=== PATIENT | male | born 1970 | race Caucasian/White ===

== ENCOUNTER 2024-11-19 14:10 | Emergency (ER) | payer MEDICAID, SELFPAY ==
[2024-11-19 14:10] VITALS: BP 135/83; PULSE 121; RESP 22; TEMP 36.4; O2SAT 100; BMI 26.0
[2024-11-19 14:43] LABS: Absolute Lymphocyte Count 2.19 X10^3/uL (0.83-4.51); Absolute Neutrophil Count 7.7 X10^3/uL (2.0-7.7); Basophil# 0.06 X10^3/uL; Basophil% 0.6 % (0-1); Eosinophil# 0.03 X10^3/uL; Eosinophils% 0.3 % (0-5); Hemoglobin 16.7 g/dL (13.0-16.5); Lymphocyte # 2.19 X10^3/ul (0.83-4.51); Lymphocyte % 20.8 % (19-41); Mean Corp Hgb Conc 32.7 g/dL (32-36); Mean Corpuscular Hgb 29.3 pg (27.0-32.0); Mean Corpuscular Volume 89.6 fL (80-94); Mean Platelet Vol. 10.2 fl (6.2-12.0); Monocyte# 0.51 X10^3/uL; Monocyte% 4.8 % (0-10); NRBC Flagged by Analyzer 0 % (0-5); Neutrophil % 73.1 % (47-70); Platelet Count 194 K/mm3 (150-450); RBC Distribution Width CV 14.3 % (11.6-14.6); Red Blood Count 5.69 M/mm3 (4.6-6.2); White Blood Count 10.5 K/mm3 (4.4-11.0)
[2024-11-19 14:58] LABS: ALB/GLOB Ratio 0.8 RATIO (0.9-2.4); AST(SGOT) 70 U/L (15-37); Alanine Aminotransfer ALT/SGPT 66 U/L (16-61); Albumin, Serum 3.4 g/dL (3.2-5.0); Alkaline Phosphatase 145 U/L (45-117); Anion Gap 8 (5-15); BUN 17 mg/dL (7-18); BUN/Creat Ratio 13.4 RATIO (10-20); Calcium,Total 9.4 mg/dL (8.5-10.1); Chloride 104 mmol/L (98-107); Creatinine, Serum 1.27 mg/dL (0.70-1.30); EST Glomerular Filtration Rate 62 mL/min (>60); Est Glom Filt Rate - Afr Amer 75 mL/min (>60); Globulin 4.2 g/dL (2.2-4.2); Glucose 160 mg/dL (74-106); Potassium 4.7 mmol/L (3.5-5.1); Protein, Total 7.6 g/dL (6.4-8.2); Sodium Level 138 mmol/L (136-145)
--- NOTE | 2024-11-19 15:37 | CT_ITS ---
PROCEDURE: ABDOMEN/PELVIS W IV CONT ONLY REASON FOR EXAM: Abdominal pain, nausea and vomiting TECHNIQUE: Abdomen and pelvis CT with intravenous contrast. Multiplanar reconstructions were performed. COMPARISON: None. FINDINGS: Lower chest: Unremarkable. Liver: Nodular hepatic contour consistent with cirrhosis. There is a cyst at dome of the liver. Biliary/gallbladder: The gallbladder is distended with a gallstone noted. Pancreas: Unremarkable. Spleen: The spleen is enlarged measuring 16.3 cm. Adrenal glands: Unremarkable. Kidneys: Moderate left hydronephrosis with an obstructing calculus at the distal ureter measuring 7.7 mm. A smear punctate nonobstructing renal calculi are present bilaterally. There also multiple cystic regions in the kidneys, most of which are too small characterize. Gastrointestinal/peritoneum: No acute abnormality.Mild colonic diverticulosis present.The appendix is unremarkable.No free air or free fluid. Vascular: Mild ectasia of the distal aorta measuring 0.5 cm. There are mild scattered atherosclerotic calcifications. Lymph nodes: No enlarged lymph nodes by CT size criteria. Pelvic organs: Unremarkable. Bladder: Unremarkable. Bones: Moderate degenerative disc disease is present at L5-S1. Otherwise mild multilevel degenerative changes Soft tissues: Unremarkable. CT/Abdomen/Pelvis W IV Cont ONLY IMPRESSION: 1. Moderate left obstructive uropathy with a 7.7 mm calculus at the distal uret er. 2. Distension of the gallbladder with a gallstone present. If there is concern for acute cholecystitis, sonographic evaluation gallbladder is recommended. 3. Cirrhotic morphology of the liver with splenomegaly. 4. Mild colonic diverticulosis. Reading Location: [facility]
--- NOTE | 2024-11-19 15:38 | ED.VIS.GI ---
HPI HPI - GI History of Present Illness Chief Complaint: Abd Pain Narrative Narrative: 54-year-old male past medical history of hepatitis C presents with nausea and vomiting as well as abdominal pain that has had since 3 PM yesterday afternoon, approximately 24 hours ago. He denies any prior abdominal surgeries. No fevers but feels chilled. He denies any upper respiratory infection type symptoms such as cough or shortness of breath. States that whenever he tries to eat or drink anything, he becomes nauseated and vomits. He states he was dry heaving since 1230 early this morning until 6 AM. He had a normal bowel movement today. No dysuria or hematuria or problems with urination. He states he was diagnosed with hepatitis C over 17 years ago. He is currently not on medication for it. [facility] Medical History Hepatitis C Home Medications ?Medication ?Instructions ?Recorded ?Last Taken ?Type NK 11/19/24 Unknown History ondansetron 4 mg disintegrating 4 mg PO Q8H PRN PRN Nausea #10 tabs 11/19/24 Unknown Rx tablet oxycodone 5 mg tablet 5 mg PO Q6H PRN pain 3 days #12 11/19/24 Unknown Rx tabs tamsulosin 0.4 mg capsule (Flomax) 0.4 mg PO DAILY #10 caps 11/19/24 Unknown Rx Allergy/AdvReac Type Severity Reaction Status Date / Time No Known Allergies Allergy Verified 11/19/24 14:12 Family History no significant family his Surgical History no surgical history Social History Smoking Status: Heavy Smoker (>10/day) ROS ROS ED ROS Narrative Constitutional: No fever, positive chills. HEENT: No sore throat. No neck pain. No rhinorrhea. Cardiovascular: No chest pain. No palpitations. No pedal edema. Respiratory: No cough, no shortness of breath. Abdominal: Positive abdominal pain. Multiple episodes of nausea and vomiting including dry heaving, no hematemesis. No diarrhea. Genitourinary: No dysuria. No hematuria. Musculoskeletal: No myalgias. No arthralgias. Neurologic: No headaches. No dizziness. No lightheadedness. Skin: No rash. No change in color. EXAM Physical Exam Narrative Exam Narrative: Afebrile. Vital signs noted. Nontoxic-appearing. Cardiovascular examination reveals a mild tachycardia. Lungs are clear to auscultation bilaterally except for occasional expiratory wheeze, moving a good amount of air. Speaking in full sentences. No respiratory distress. Abdominal examination shows minimal diffuse tenderness to palpation without guarding or rebound. Positive bowel sounds. Neurological examination is nonfocal and nonlateralizing. Const Vital Signs: 11/19/24 14:10 11/19/24 16:10 11/19/24 18:00 Temperature 97.5 F L Temperature Source Temporal Pulse Rate 121 H 94 92 Respiratory Rate 22 H 15 16 Blood Pressure 135/83 H Blood Pressure Mean 100 Pulse Ox 100 95 94 Oxygen Delivery Method Room Air Room Air Room Air 11/19/24 20:00 11/19/24 20:38 11/19/24 21:07 Temperature 97.5 F L Temperature Source Pulse Rate 97 97 Respiratory Rate 16 16 Blood Pressure 126/70 H 126/70 H Blood Pressure Mean 88 88 Pulse Ox 93 93 Oxygen Delivery Method Room Air MDM MDM MDM Narrative Medical decision making narrative: Differential diagnosis includes but not limited to cholecystitis versus pancreatitis versus gastroenteritis versus gastritis. He states he is nauseated more than anything. He was administered normal saline bolus as well as ondansetron. Protocol labs were ordered and reviewed. He has normal white count of 10.5 with hemoglobin slightly hemoconcentrated at 16.7 and platelet count 194. Electrolyte panel/CMP shows AST elevated 70 with ALT 66 and alk phos 145 which I think is nonspecific, no profound dehydration with a BUN of 17 and creatinine 1.27, sodium normal at 138 and potassium 4.7. Normal anion gap of 8. I will add a lipase. I do feel that imaging is indicated. He was administered morphine for analgesia as well. I reviewed the radiology report of the CT of the abdomen and pelvis there is a 7.7 mm ureteral stone on the left causing hydronephrosis. Also, there is a gallstone in the neck of the gallbladder causing gallbladder distention with concern for acute cholecystitis. Upon repeat examination, patient feels improved and his abdomen remains soft, there is no Lam sign in the right upper quadrant. He did have return of pain so he was redosed with his morphine. I reviewed the radiology report of the ultrasound of the right upper quadrant and while there is a gallstone in the neck of the gallbladder with distention, there is no pericholecystic fluid or gallbladder wall thickening. At this point in time, I have discussed the patient with Dr. Leigh with general surgery. While the patient does not need admission or surgery for the gallstone in the neck of the gallbladder, given his cirrhosis, if he did he would probably need transfer to another facility. However, it was felt that he could be discharged to follow-up with general surgery as there is no evidence of an acute cholecystitis. He was written for analgesia for his ureteral stone but told that he needs to follow-up with urology and may require procedure as he has a 7.7 mm stone that may require stenting. He was also written something for nausea. Patient is motivated for discharge and would like discharge at this time. Return instructions to the emergency department were reviewed. I did discuss the patient with Dr. Chiu with urology, as well as Dr. Leigh with general surgery. Urine culture is currently pending. It was not felt that he needed antibiotics at this point in time. Disposition is discharged home in stable condition. History & Record Review Discussion w/independent historian: Patient and Family Lab Data Attestation: I reviewed the patient's lab results. Labs: Laboratory Results - last 24 hr 11/19/24 11/19/24 14:33 16:32 WBC 10.5 RBC 5.69 Hgb 16.7 H Hct 51.0 MCV 89.6 MCH 29.3 MCHC 32.7 RDW Std Deviation 47.0 H RDW Coeff of Monique 14.3 Plt Count 194 MPV 10.2 Immature Gran % (Auto) 0.400 Neut % (Auto) 73.1 H Lymph % (Auto) 20.8 [place] % (Auto) 4.8 Eos % (Auto) 0.3 Baso % (Auto) 0.6 Absolute Neuts (auto) 7.7 Absolute Lymphs (auto) 2.19 Nucleated RBC % 0 Sodium 138 Potassium 4.7 Chloride 104 Carbon Dioxide 26.0 Anion Gap 8 BUN 17 Creatinine 1.27 Estim Creat Clear Calc 73.40 Est GFR (MDRD) Af Amer 75 Est GFR (MDRD) Non-Af 62 BUN/Creatinine Ratio 13.4 Glucose 160 H Calcium 9.4 Total Bilirubin 1.80 H AST 70 H ALT 66 H Alkaline Phosphatase 145 H Total Protein 7.6 Albumin 3.4 Globulin 4.2 Albumin/Globulin Ratio 0.8 L Lipase 31 L Urine Color Straw Urine Clarity Sl. Cloudy Urine pH 7.0 Ur Specific [place] 1.005 Urine Protein 30 H Urine Glucose (UA) Normal Urine Ketones Negative Urine Occult Blood 250 H Urine Nitrite Negative Urine Bilirubin 1 H Urine Urobilinogen 1 H Ur Leukocyte Esterase 25 H Urine RBC > 100 SEEN Urine WBC 5-10 SEEN Ur Squamous Epith Cells 0-5 SEEN Urine Bacteria RARE Urine Mucus 1+ Radiography Diagnostic Testing: Clinical Impression(s) from Imaging Studies Abdomen/Pelvis CT 11/19/24 15:37 IMPRESSION: 1. Moderate left obstructive uropathy with a 7.7 mm calculus at the distal ureter. 2. Distension of the gallbladder with a gallstone present. If there is concern for acute cholecystitis, sonographic evaluation gallbladder is recommended. 3. Cirrhotic morphology of the liver with splenomegaly. 4. Mild colonic diverticulosis. Reading Location: [facility] Gallbladder Ultrasound 11/19/24 18:05 IMPRESSION: 1. No definitive sonographic evidence of acute cholecystitis. 2. Distended gallbladder with stone in the neck, however, sonographic Lam's sign is negative. 3. Cirrhotic morphology of the liver. Reading Location: [facility] Management Discussion w/another healthcare provider: [employer] (Dr. Chiu with urology, Dr. Leigh with general surgery) Discharge Plan Triage Chief Complaint: Abd Pain ED Provider: Oscar Ryan Dx/Rx/DC Orders Clinical Impression: Gallstones, Ureterolithiasis Instructions: ED Gallstones with Biliary Colic, ED Kidney Stone with Pain, ED Abdominal Pain Unkn Cause Male... Prescriptions: New oxycodone 5 mg tablet 5 mg PO Q6H PRN (Reason: pain) 3 Days Qty: 12 0RF ondansetron 4 mg tablet,disintegrating 4 mg PO Q8H PRN PRN (Reason: Nausea) Qty: 10 0RF tamsulosin [Flomax] 0.4 mg capsule 0.4 mg PO DAILY Qty: 10 0RF No Action NK Primary Care Provider: NOT,DEFINED Referrals: Juanjose Chiu MD [Med Staff - Active Staff] - 3-5 Days NOT,DEFINED [Primary Care Provider] - Activity Restrictions/Additional Instructions: Return to the emergency department with increased pain especially the right upper quadrant, continued nausea and vomiting, fever, new or worsening symptoms. You need to follow-up with urology regarding the kidney stone/ureteral stone that you have. It is sizable and you may need a procedure. Print Language: Namibian Disposition Disposition: Home, Self Care Discharge Date/Time: 11/19/24 21:16
[2024-11-19] MEDS: Morphine 4 MG/ML Syringe IV ×2 (15:47→19:39)
[2024-11-19] MEDS: Ondansetron 4 MG/2 ML Vial IV (15:47)
[2024-11-19] MEDS: 0.9% Normal Saline (1000mL) 1,000 ML 999 ML IV (15:47)
[2024-11-19 16:10] VITALS: PULSE 94; RESP 15; O2SAT 95
[2024-11-19 16:10] LABS: Lipase 31 U/L (73-393)
[2024-11-19 16:39] LABS: Color, Urine Straw (Yellow); Glucose, Dipstick Normal (Normal); Ketone-Dipstick Negative (Negative); Leukocyte Esterase-Dipstick 25 /ul (Negative); Nitrite-Dipstick Negative (Negative); Occult Blood-Urine 250 /ul (Negative); Protein-Dipstick 30 mg/dl (Negative); Specific Gravity, Urine 1.005 (1.002-1.030); Urine Clarity Sl. Cloudy (Clear); Urine Urobilinogen 1 mg/dl (Normal)
[2024-11-19 16:52] LABS: Urine Bilirubin Dipstick 1 mg/dL (Negative)
[2024-11-19 17:03] LABS: Red Blood Cells-Urine > 100 SEEN /hpf (0-5); White Blood Cells 5-10 SEEN /hpf (0-5)
[2024-11-19 17:04] LABS: Bacteria RARE /hpf (None Seen)
[2024-11-19 17:05] LABS: Mucous, Urine 1+ /hpf (<or=2+); Squamous Epithelial Cells - UA 0-5 SEEN /hpf (0-5)
[2024-11-19 18:00] VITALS: PULSE 92; RESP 16; O2SAT 94
--- NOTE | 2024-11-19 18:05 | US_ITS ---
PROCEDURE: GALLBLADDER REASON FOR EXAM: Pain, elevated LFTs COMPARISON: 11/19/2024 FINDINGS: Liver: Nodular hepatic contour and heterogeneous echotexture. Measures: 15.4 cm. Hepatopetal flow present main portal vein. Gallbladder: A gallstone is present measuring 2.8 cm in the gallbladder neck. The gallbladder is distended. No gallbladder wall thickening identified. Sonographic Lam's sign is negative. Common bile duct: The measurement obtained shows the common bile duct measuring 1 cm, however, the common bile duct is clearly not dilated on the CT from the same day. The measurement may be of the gallbladder neck. Pancreas: Visualized portions are sonographically unremarkable. Right kidney: Normal echotexture and vascularity. Measures: 11.7 cm. There is a simple cyst in the lower pole measuring 2.5 cm. Multiple calculi noted. US/Gallbladder IMPRESSION: 1. No definitive sonographic evidence of acute cholecystitis. 2. Distended gallbladder with stone in the neck, however, sonographic Lam's sign is negative. 3. Cirrhotic morphology of the liver. [facility]
[2024-11-19 20:00] VITALS: PULSE 97; RESP 16; O2SAT 93
[2024-11-19 20:38] VITALS: BP 126/70
[2024-11-19 21:07] VITALS: BP 126/70; PULSE 97; RESP 16; TEMP 36.4; O2SAT 93
== END 2024-11-19 21:16 | disposition home or self-care (01) ==
PROVIDERS: Emergency Provider Emergency Medicine; Visit Provider Emergency Medicine
DX: K80.20 Calculus of gallbladder without cholecystitis without obstruction (principal); N20.1 Calculus of ureter; F17.200 Nicotine dependence, unspecified, uncomplicated
CPT/HCPCS: 74177; 76705; 80053; 81001; 83690; 85025; 87086; 96361; 96374; 96375; 96376; 99283; Q9967; A4216; J2405

== ENCOUNTER 2024-11-22 15:16 | Emergency (ER) | payer MEDICAID, SELFPAY ==
[2024-11-22 15:17] VITALS: BP 140/99; PULSE 69; RESP 15; TEMP 36.4; O2SAT 99
--- NOTE | 2024-11-22 16:23 | EDS_ITS ---
HPI History of Present Illness Chief Complaint: Flank Pain PFSH PFSH Medical History Hepatitis C Home Medications ?Medication ?Instructions ?Recorded ?Last Taken ?Type NK 11/19/24 Unknown History ondansetron 4 mg disintegrating 4 mg PO Q8H PRN PRN Na usea #10 tabs 11/19/24 Unknown Rx tablet oxycodone 5 mg tablet 5 mg PO Q6H PRN pain 3 days #12 11/19/24 Unknown Rx tabs tamsulosin 0.4 mg capsule (Flomax) 0.4 mg PO DAILY #10 caps 11/19/24 Unknown Rx Allergy/AdvReac Type Severity Reaction Status Date / Time No Known Allergies Allergy Verified 11/22/24 15:17 Family History no significant family his Surgical History no surgical history Social History Smoking Status: Heavy Smoker (>10/day) EXAM Physical Exam Const Vital Signs: 11/22/24 15:17 11/22/24 17:16 11/22/24 18:39 Temperature 97.6 F L 97.6 F L Temperature Source Oral Pulse Rate 69 86 86 Respiratory Rate 15 16 16 Blood Pressure 140/99 H 136/94 H 136/94 H Blood Pressure Mean 112 108 108 Pulse Ox 99 94 94 Oxygen Delivery Method Room Air 11/22/24 19:18 Temperature 98.3 F Temperature Source Pulse Rate 81 Respiratory Rate 18 Blood Pressure 143/74 H Blood Pressure Mean 97 Pulse Ox 98 Oxygen Delivery Method MDM MDM MDM Narrative Medical decision making narrative: HISTORY OF PRESENT ILLNESS: 54-year-old male presents with concern for flank pain. He notes he was seen here on Wednesday and diagnosed with bilateral kidney stones. He notes increasing pain in the left flank that is worse with urination. There is a fever reported by the patient's . Notes he is prescribed oxycodone is only taken 1. No vomiting. No chest pain or shortness of breath. Notes pain with urination. Denies hematuria. REVIEW OF SYSTEMS: Pertinent positives: Flank pain, fever Pertinent negatives: Vomiting PHYSICAL EXAM: Nursing triage notes reviewed, Vital signs reviewed Constitutional: please see mdm HENT: MMM Eyes: Pupils equal round and reactive to light, Extraocular muscles intact Neck: No stridor, no JVD, full neck ROM Lungs: Clear to auscultation, No wheezing or rales. No increased work of breathing, no conversational dyspnea, no accessory muscle use, no nasal flaring. No respiratory distress noted Heart: Regular rate and rhythm, No murmurs, No rubs and No gallops, 2+ distal pulses (radial, femoral, posterior tibial) in all extremities Abdomen: Soft, there is no tenderness, rigidity, rebound or guarding, no obvious peritoneal signs, no palpable pulsatile abdominal masses, no auscultated abdominal bruit : Left CVAT Extremities: No edema Neuro: No new focal neurological deficits, cranial nerves II through XII intact, 5/5 strength in all present extremities. Intact sensation to light touch in all present extremities, 2+ reflexes bilateral patella tendons. Skin: No rash or lesions noted MEDICAL DECISION MAKING: Chief Complaint: Flank pain External records reviewed: Reviewed recent CT scan of the abdomen pelvis as well as ultrasound right upper quadrant. CT scan of the abdomen pelvis from 11/19/2024 shows moderate left obstructive Arun the 7.7 mm calculus at the distal ureter. Gallstones. Right upper quad ultrasound from 11/19/2024 showed no definitive acute cholecystitis Factors affecting care: Nephrolithiasis Social determinants of health: Insurance coverage difficulties History obtained from others: patient's Consults: Urology (Dr. Chiu) MDM Narrative: Patient was initially hemodynamically stable, afebrile and nontoxic-appearing. Left CVAT noted on initial exam. I considered the following differential diagnosis: Nephrolithiasis, UTI, Given recent diagnosis of kidney stone I was concerned for a stone that will require potentially emergent urologic evaluation. Given report of fever concern is still may be infected. I obtained a broad lab and imaging workup to further elucidate etiology of patient's complaints. I initially treated the patient with 4 mg IV morphine, 4 mg IV Zofran, 1 L normal saline and 15 mg of IV Toradol ALL IMAGES (IF OBTAINED) HAVE BEEN PERSONALLY REVIEWED AND INTERPRETED BY MYSELF. CT scan of the abdomen pelvis read reviewed personally so showed a large left nephrolithiasis with accompanying hydroureter. Radiologist agreed with my interpretation CBC without leukocytosis, severe anemia, no thrombocytopenia. BMP without evidence of significant electrolyte abnormalities, no anion gap, no acute kidney injury. Urinalysis shows no evidence of urinary inflammation suggestive of UTI Discussed the case with urology on-call given second visit large stone is unlikely to pass on its own with urologist recommended admission. Admitted admission to the urology service. After patient's admission order was placed the patient got upset at his significant other and started stating I do not want that bitch in my house. He stated he needed to leave because needed cigarette needs to take care of his home. Patient was then promptly discharged with strict return precautions. Patient was alert and orient x 3 and had capacity to make his own medical decisions. He chose against admission at this time. Risk of urosepsis, , disability and individual income was discussed. Patient is understanding and still chose to be discharged. Of note disc was printed so the patient could seek further urological care as an outpatient given he had insurance coverage issues following up with local urologist Dr. Chiu. Dr. Chiu aware the patient refused admission. The patient and/or family, caregivers express understanding. The patient and/or family, caregivers agrees with the plan. Shared decision making: I will have a discussion with the patient and or visitors regarding risk/benefits of further testing or admission. They will be made aware of of the risk/benefits inherent in this decision they will be given the opportunity to voice understanding. Total critical care time today provided was at least 0 minutes. This excludes separately billable procedures. Critical care time (if documented) is secondary to the patient having high probability of clinically significant/life threatening deterioration in the patient's condition which required my urgent intervention. Impression: 1. Nephrolithiasis 2. Hydronephrosis Dispo: Discharge home This note was generated with [employer] dictation software. It may contain incorrect words, spelling, and punctuation that were not noted in review of the chart prior to signing. Lab Data Labs: Laboratory Results - last 24 hr 11/22/24 11/22/24 16:45 18:06 WBC 4.5 RBC 4.89 Hgb 14.7 Hct 44.9 MCV 91.8 MCH 30.1 MCHC 32.7 RDW Std Deviation 48.7 H RDW Coeff of Monique 14.3 Plt Count 90 L MPV 10.5 Immature Gran % (Auto) 0.400 Neut % (Auto) 68.9 Lymph % (Auto) 20.3 [place] % (Auto) 7.9 Eos % (Auto) 1.8 Baso % (Auto) 0.7 Absolute Neuts (auto) 3.1 Absolute Lymphs (auto) 0.92 Nucleated RBC % 0 Platelet Estimate MOD DEC Sodium 143 Potassium 4.2 Chloride 111 H Carbon Dioxide 28.0 Anion Gap 4 L BUN 15 Creatinine 1.09 Est GFR (MDRD) Af Amer 90 Est GFR (MDRD) Non-Af 74 BUN/Creatinine Ratio 13.8 Glucose 124 H Calcium 8.8 Urine Color Yellow Urine Clarity Cloudy Urine pH 6.5 Ur Specific [place] 1.015 Urine Protein 30 H Urine Glucose (UA) Normal Urine Ketones Negative Urine Occult Blood 250 H Urine Nitrite Negative Urine Bilirubin Negative Urine Urobilinogen Normal Ur Leukocyte Esterase 25 H Urine RBC > 100 SEEN Urine WBC 0-5 SEEN Ur Squamous Epith Cells 0 SEEN Urine Bacteria 0 SEEN Urine Mucus 0 SEEN Radiography Diagnostic Testing: Clinical Impression(s) from Imaging Studies Abdomen/Pelvis CT 11/22/24 16:31 IMPRESSION: 1. Stable obstructing left distal ureteral calculus measuring 7.7 mm with moderate hydroureteronephrosis. 2. Interval development of fluid stranding introduced, subjacent to the left ureter, new since prior examination. Findings are nonspecific and likely represent inflammation or developing infection, however ruptured ureter can not be ruled out. Urology consultation recommended. 3. Liver cirrhosis with findings of portal hypertension including moderate splenomegaly. 4. Development of mild mesenteric stranding and edema, and trace ascites, which is nonspecific however likely represents portal colopathy. 5. Stable cholelithiasis. One or more dose reduction techniques were used (e.g., Automated exposure control, adjustment of the mA and/or kV according to patient size, use of iterative reconstruction technique). Reading Location: [facility] Discharge Plan Triage Chief Complaint: Flank Pain ED Provider: Christiano Almaguer Dx/Rx/DC Orders Clinical Impression: Ureterolithiasis Instructions: ED Kidney Stone with Pain Prescriptions: No Action NK oxycodone 5 mg tablet 5 mg PO Q6H PRN (Reason: pain) 3 Days Qty: 12 0RF ondansetron 4 mg tablet,disintegrating 4 mg PO Q8H PRN PRN (Reason: Nausea) Qty: 10 0RF tamsulosin [Flomax] 0.4 mg capsule 0.4 mg PO DAILY Qty: 10 0RF Primary Care Provider: Care Physician,No Primary Referrals: Apple,Tanvir, MD [Med Staff - Active Staff] - Homer Villela MD [Med Staff - Active Staff] - Activity Restrictions/Additional Instructions: Thank you for trusting us with your care today! You have a large kidney stone. If your pain worsens please return immediately. If develop fever please return immediately. Please take Tylenol (2 pills, 650 mg), ibuprofen (2 pills, 400 mg) every 6 hours as needed for pain and fever control. Please take oxycodone As needed for additional pain control with the above reg sandy is not controlling her pain. Please return to the emergency department if your symptoms change or worsen. Please follow with your primary care physician for further outpatient evaluation and management. Print Language: Khmer Disposition Disposition: Home, Self Care Discharge Date/Time: 11/22/24 19:18
--- NOTE | 2024-11-22 16:31 | CT_ITS ---
PROCEDURE: ABDOMEN/PELVIS WITHOUT CONT REASON FOR EXAM: 54-year-old male, history of bilateral kidney stones, increased left flank pain. Seen on 11/19/2024, now with fever. TECHNIQUE: Abdomen and pelvis CT without intravenous contrast. COMPARISON: CT abdomen pelvis 11/19/2024. FINDINGS: Lung bases: Mild emphysema and scattered areas of scarring. The heart is normal in size. Liver: Unchanged cirrhotic morphology of the liver. No biliary ductal dilation. Gallbladder: Stable cholelithiasis without gallbladder wall thickening or pericholecystic fluid. Spleen: Enlarged measuring 17.8 cm. Pancreas: The unopacified pancreas is unremarkable. Adrenals: Unremarkable. Kidneys: Unchanged moderate left hydroureteronephrosis with obstructing renal calculus within the distal ureter measuring 7.7 mm, previously 7.7 mm with development of fluid stranding subjacent to the ureter, new since prior examination. Additional punctate bilateral renal calculi. Small bilateral renal cysts and additional hypodensities, too small to characterize. Bladder: Decompressed with mild bladder wall thickening. Reproductive Organs: Dystrophic calcifications within the prostate gland. Bowel: The bowel loops are normal in caliber. Mild diffuse mesenteric stranding and edema. Development of trace right upper quadrant and pelvic ascites. No pneumoperitoneum. Normal appendix. Lymph nodes: No suspicious lymph node enlargement. Vasculature: Mild calcific plaque of the abdominal aorta. Bones: Thoracolumbar spondylosis. CT/Abdomen/Pelvis without Cont IMPRESSION: 1. Stable obstructing left distal ureteral calculus measuring 7.7 mm with moder ate hydroureteronephrosis. 2. Interval development of fluid stranding introduced, subjacent to the left ur eter, new since prior examination. Findings are nonspecific and likely represent inflammation or developing infection, however ruptured ureter can not be ruled out. Urology consultation recommended. 3. Liver cirrhosis with findings of portal hypertension including moderate sple nomegaly. 4. Development of mild mesenteric stranding and edema, and trace ascites, which is nonspecific however likely represents portal colopathy. 5. Stable cholelithiasis. One or more dose reduction techniques were used (e.g., Automated exposure contr ol, adjustment of the mA and/or kV according to patient size, use of iterative reconstruction technique). Reading Location: [id number]
[2024-11-22] MEDS: 0.9% Normal Saline (1000mL) 1,000 ML 999 ML IV (16:50)
[2024-11-22] MEDS: Ketorolac 15 MG/ML Vial IV (16:50)
[2024-11-22] MEDS: Ondansetron 4 MG/2 ML Vial IV (16:50)
[2024-11-22] MEDS: Morphine 4 MG/ML Syringe IV (16:52)
[2024-11-22 17:16] VITALS: BP 136/94; PULSE 86; RESP 16; O2SAT 94
[2024-11-22 17:51] LABS: Absolute Lymphocyte Count 0.92 X10^3/uL (0.83-4.51); Absolute Neutrophil Count 3.1 X10^3/uL (2.0-7.7); Basophil# 0.03 X10^3/uL; Basophil% 0.7 % (0-1); Eosinophil# 0.08 X10^3/uL; Eosinophils% 1.8 % (0-5); Hematocrit 44.9 % (40-54); Hemoglobin 14.7 g/dL (13.0-16.5); Lymphocyte # 0.92 X10^3/ul (0.83-4.51); Lymphocyte % 20.3 % (19-41); Mean Corp Hgb Conc 32.7 g/dL (32-36); Mean Corpuscular Hgb 30.1 pg (27.0-32.0); Mean Corpuscular Volume 91.8 fL (80-94); Mean Platelet Vol. 10.5 fl (6.2-12.0); Monocyte# 0.36 X10^3/uL; Monocyte% 7.9 % (0-10); NRBC Flagged by Analyzer 0 % (0-5); Neutrophil # 3.13 X10^3/uL (2.7-7.7); Neutrophil % 68.9 % (47-70); POSITIVE COUNT YES; Platelet Count 90 K/mm3 (150-450); RBC Distribution Width CV 14.3 % (11.6-14.6); RBC Distribution Width SD 48.7 fl (35.1-43.9); Red Blood Count 4.89 M/mm3 (4.6-6.2); White Blood Count 4.5 K/mm3 (4.4-11.0)
[2024-11-22 18:01] LABS: Differential Indicated SCAN CRITERIA MET
[2024-11-22 18:04] LABS: Anion Gap 4 (5-15); BUN 15 mg/dL (7-18); BUN/Creat Ratio 13.8 RATIO (10-20); Calcium,Total 8.8 mg/dL (8.5-10.1); Chloride 111 mmol/L (98-107); Creatinine, Serum 1.09 mg/dL (0.70-1.30); EST Glomerular Filtration Rate 74 mL/min (>60); Est Glom Filt Rate - Afr Amer 90 mL/min (>60); Glucose 124 mg/dL (74-106); Potassium 4.2 mmol/L (3.5-5.1); Sodium Level 143 mmol/L (136-145)
[2024-11-22 18:13] LABS: Bacteria 0 SEEN /hpf (None Seen); Mucous, Urine 0 SEEN /hpf (<or=2+); Squamous Epithelial Cells - UA 0 SEEN /hpf (0-5)
[2024-11-22 18:15] LABS: Color, Urine Yellow (Yellow); Glucose, Dipstick Normal (Normal); Ketone-Dipstick Negative (Negative); Leukocyte Esterase-Dipstick 25 /ul (Negative); Nitrite-Dipstick Negative (Negative); Occult Blood-Urine 250 /ul (Negative); Protein-Dipstick 30 mg/dl (Negative); Specific Gravity, Urine 1.015 (1.002-1.030); Urine Bilirubin Dipstick Negative (Negative); Urine Clarity Cloudy (Clear); Urine Urobilinogen Normal (Normal); Urine pH 6.5 (5.0 - 8.0)
[2024-11-22 18:27] LABS: Platelet Estimate MOD DEC (ADEQ)
[2024-11-22 18:34] LABS: Red Blood Cells-Urine > 100 SEEN /hpf (0-5); White Blood Cells 0-5 SEEN /hpf (0-5)
[2024-11-22 18:39] VITALS: BP 136/94; PULSE 86; RESP 16; TEMP 36.4; O2SAT 94
[2024-11-22 19:18] VITALS: BP 143/74; PULSE 81; RESP 18; TEMP 36.8; O2SAT 98
== END 2024-11-22 19:18 | disposition home or self-care (01) ==
PROVIDERS: Emergency Provider Emergency Medicine; Visit Provider Emergency Medicine
DX: N13.2 Hydronephrosis with renal and ureteral calculous obstruction (principal); F17.200 Nicotine dependence, unspecified, uncomplicated
CPT/HCPCS: 74176; 80048; 81001; 85025; 96361; 96374; 96375; 96376; 99284; A4216; J2405